=== PATIENT | female | born 1990 | race Caucasian/White ===

== ENCOUNTER 2017-05-02 14:34 | Outpatient (CLI) | payer BC | END 2017-05-02 16:19 | disposition home or self-care (01) | LOC: OBT 14:34 → L-D 14:34 → OBT 16:19 | DX: O99.513 Diseases of the respiratory system complicating pregnancy, third trimester (principal); J11.1 Influenza due to unidentified influenza virus with other respiratory manifestations; Z3A.38 38 weeks gestation of pregnancy | CPT/HCPCS: 76818 ==

== ENCOUNTER 2017-05-05 11:26 | Outpatient (CLI) | payer BC ==
[2017-05-05 12:00] LABS: ADD MAN DIFF? NO
[2017-05-05 12:10] LABS: BASOPHILS % 0.2 % (0.0-2.0); EOSINOPHILS # 0.1 10^3/ul (0.0-0.5); EOSINOPHILS % 0.7 % (0.0-7.0); HEMATOCRIT 34.7 % (37.0-47.0); LYMPHOCYTES # 1.3 10^3/ul (0.8-2.9); LYMPHOCYTES % 15.7 % (15.0-51.0); MEAN CORPUSCULAR HEMOGLOBIN 30.5 pg (29.0-33.0); MEAN CORPUSCULAR HGB CONC 34.6 g/dl (32.0-37.0); MEAN CORPUSCULAR VOLUME 88.3 fl (82.0-101.0); MEAN PLATELET VOLUME 9.9 fl (7.4-10.4); MONOCYTE # 0.7 10^3/ul (0.3-0.9); NEUTROPHIL # 6.3 10^3/ul (1.6-7.5); NEUTROPHILS % 74.3 % (39.0-77.0); PLATELET COUNT 269 10^3/UL (140-415); RED BLOOD COUNT 3.93 10^6/ul (4.20-5.40)
[2017-05-05 12:10] LABS: WHITE BLOOD COUNT 8.5 10^3/ul (4.8-10.8)
[2017-05-05 12:29] LABS: ALANINE AMINOTRANSFERASE 24 IU/L (13-69); ALBUMIN 3.5 g/dl (3.3-4.9); ALBUMIN/GLOBULIN RATIO 1.06; ALKALINE PHOSPHATASE 230 IU/L (42-121); ANION GAP 14 (8-16); ASPARTATE AMINO TRANSFERASE 20 IU/L (15-46); BILIRUBIN,INDIRECT 0.2 mg/dl (0-1.1); BILIRUBIN,TOTAL 0.2 mg/dl (0.2-1.3); BLOOD UREA NITROGEN 9 mg/dl (7-20); CALCIUM 9.2 mg/dl (8.4-10.2); CARBON DIOXIDE 19 mmol/L (21-31); CHLORIDE 109 mmol/L (97-110); GLUCOSE 103 mg/dl (70-220); POTASSIUM 4.1 mmol/L (3.5-5.1); SODIUM 138 mmol/L (135-144); TOTAL PROTEIN 6.8 g/dl (6.1-8.1); URIC ACID 5.6 mg/dl (3.1-7.9)
[2017-05-05 12:36] LABS: INR 0.85; PARTIAL THROMBOPLASTIN TIME 26.8 Sec (25.0-35.0); PROTIME 11.7 Sec (11.9-14.9); PT RATIO 0.9
[2017-05-05 12:53] LABS: ADD UMIC YES; UR ASCORBIC ACID 40 mg/dL (NEGATIVE); UR BACTERIA MODERATE /HPF (NONE SEEN); UR BILIRUBIN (Dip) NEGATIVE (NEGATIVE); UR BLOOD (Dip) NEGATIVE (NEGATIVE); UR CLARITY TURBID (CLEAR); UR COLOR AMBER (YELLOW); UR GLUCOSE (Dip) NEGATIVE (NEGATIVE); UR KETONES (Dip) NEGATIVE (NEGATIVE); UR LEUKOCYTE ESTERASE (Dip) 3+ Leu/ul (NEGATIVE); UR NITRITE (Dip) NEGATIVE (NEGATIVE); UR NONSQUAMOUS EPITHELIAL CELL 3 /HPF (NONE SEEN); UR RBC 10 /HPF (0-5); UR SPECIFIC GRAVITY (Dip) 1.025 (1.003-1.030); UR SQUAMOUS EPITHELIAL CELL MODERATE /HPF (FEW); UR TOTAL PROTEIN (Dip) 2+ mg/dl (NEGATIVE); UR UROBILINOGEN (Dip) NEGATIVE (NEGATIVE); UR WBC 38 /HPF (0-5)
== END 2017-05-05 14:00 | disposition home or self-care (01) ==
LOC: OBT 11:26 → L-D 11:26 → OBT 14:00
DX: O62.9 Abnormality of forces of labor, unspecified (principal); Z3A.38 38 weeks gestation of pregnancy
CPT/HCPCS: 76818; 80053; 81001; 84560; 85025; 85384; 85610; 85730

== ENCOUNTER 2017-05-12 10:17 | Inpatient (IN) | payer BC ==
[2017-05-12 11:57] LABS: ALANINE AMINOTRANSFERASE 25 IU/L (13-69); ALBUMIN 3.4 g/dl (3.3-4.9); ALKALINE PHOSPHATASE 236 IU/L (42-121); ANION GAP 14 (8-16); ASPARTATE AMINO TRANSFERASE 17 IU/L (15-46); BILIRUBIN,INDIRECT 0.1 mg/dl (0-1.1); BILIRUBIN,TOTAL 0.1 mg/dl (0.2-1.3); BLOOD UREA NITROGEN 11 mg/dl (7-20); CALCIUM 9.7 mg/dl (8.4-10.2); CARBON DIOXIDE 20 mmol/L (21-31); CHLORIDE 107 mmol/L (97-110); CREATININE 0.66 mg/dl (0.44-1.00); GLUCOSE 89 mg/dl (70-220); SODIUM 137 mmol/L (135-144); TOTAL PROTEIN 6.8 g/dl (6.1-8.1); URIC ACID 6.5 mg/dl (3.1-7.9)
[2017-05-12 12:04] LABS: ADD UMIC YES; UR ASCORBIC ACID 40 mg/dL (NEGATIVE); UR BACTERIA FEW /HPF (NONE SEEN); UR BILIRUBIN (Dip) NEGATIVE (NEGATIVE); UR BLOOD (Dip) NEGATIVE (NEGATIVE); UR CLARITY CLOUDY (CLEAR); UR COLOR YELLOW (YELLOW); UR GLUCOSE (Dip) NEGATIVE (NEGATIVE); UR KETONES (Dip) NEGATIVE (NEGATIVE); UR LEUKOCYTE ESTERASE (Dip) TRACE Leu/ul (NEGATIVE); UR NITRITE (Dip) NEGATIVE (NEGATIVE); UR NONSQUAMOUS EPITHELIAL CELL 2 /HPF (NONE SEEN); UR RBC 2 /HPF (0-5); UR SPECIFIC GRAVITY (Dip) 1.018 (1.003-1.030); UR SQUAMOUS EPITHELIAL CELL MODERATE /HPF (FEW); UR TOTAL PROTEIN (Dip) NEGATIVE (NEGATIVE); UR UROBILINOGEN (Dip) NEGATIVE (NEGATIVE); UR WBC 11 /HPF (0-5)
[2017-05-12] MEDS ORDERED: LIDOCAINE 1% (MPF) 30 ML INJ INJ (13:30)
[2017-05-12] MEDS ORDERED: METHYLERGONOVINE 0.2 MG INJ IM (13:30)
[2017-05-12] MEDS ORDERED: CARBOPROST 250 MCG INJ IM (13:30)
[2017-05-12] MEDS ORDERED: HYDROCODONE/APAP (5/325) TAB PO (13:30)
[2017-05-12] MEDS ORDERED: IBUPROFEN 600 MG TAB PO (13:30)
[2017-05-12] MEDS ORDERED: BUTORPHANOL 2 MG INJ IV (13:30)
[2017-05-12] MEDS ORDERED: MISOPROSTOL 200 MCG TAB PR (13:30)
[2017-05-12] MEDS ORDERED: OXYTOCIN 30 UNITS/LR 500 ML IV ×2 (13:30)
[2017-05-12] MEDS: LACTATED RINGER'S 1,000 ML IV ×2 (14:55→21:32)
[2017-05-12 15:33] LABS: ADD MAN DIFF? NO
[2017-05-12 15:36] LABS: BASOPHILS % 0.2 % (0.0-2.0); EOSINOPHILS # 0.1 10^3/ul (0.0-0.5); EOSINOPHILS % 0.5 % (0.0-7.0); HEMATOCRIT 37.2 % (37.0-47.0); HEMOGLOBIN 12.8 g/dl (12.0-16.0); LYMPHOCYTES # 1.4 10^3/ul (0.8-2.9); LYMPHOCYTES % 13.9 % (15.0-51.0); MEAN CORPUSCULAR HEMOGLOBIN 30.3 pg (29.0-33.0); MEAN CORPUSCULAR HGB CONC 34.4 g/dl (32.0-37.0); MEAN CORPUSCULAR VOLUME 88.2 fl (82.0-101.0); MEAN PLATELET VOLUME 9.9 fl (7.4-10.4); MONOCYTE # 0.9 10^3/ul (0.3-0.9); MONOCYTES % 8.3 % (0.0-11.0); NEUTROPHIL # 7.8 10^3/ul (1.6-7.5); NEUTROPHILS % 76.3 % (39.0-77.0); PLATELET COUNT 275 10^3/UL (140-415); RED BLOOD COUNT 4.22 10^6/ul (4.20-5.40)
[2017-05-12 15:36] LABS: WHITE BLOOD COUNT 10.2 10^3/ul (4.8-10.8)
[2017-05-12] MEDS: DINOPROSTONE 10 MG VAG SUPP VAG (15:41)
[2017-05-12 16:03] LABS: INR 0.91; PROTIME 12.3 Sec (11.9-14.9)
[2017-05-12 16:04] LABS: PARTIAL THROMBOPLASTIN TIME 28.3 Sec (25.0-35.0)
[2017-05-12 16:40] LABS: HEPATITIS B SURFACE ANTIGEN NEGATIVE (NEGATIVE)
[2017-05-12 17:36] LABS: AMPHETAMINE/METHAMPHETAMINE Negative (NEGATIVE); BARBITURATES Negative (NEGATIVE); BENZODIAZEPINES Negative (NEGATIVE); CANNABINOIDS Negative (NEGATIVE); COCAINE Negative (NEGATIVE); OPIATES Negative (NEGATIVE)
[2017-05-12] MEDS: ACYCLOVIR 400 MG TAB PO (21:17)
[2017-05-12] MEDS: ACETAMINOPHEN 325 MG TAB PO (21:28)
[2017-05-13] MEDS: BUTORPHANOL 2 MG INJ IV (04:16)
[2017-05-13] MEDS: LACTATED RINGER'S 1,000 ML IV ×2 (05:41→12:26)
[2017-05-13] MEDS ORDERED: FENTAnyl 2MCG/ML-ROPIV 0.2% 100 ML (06:21)
[2017-05-13] MEDS ORDERED: NALOXONE (0.4 MG/ML) INJ IV (07:00)
[2017-05-13] MEDS: DINOPROSTONE 10 MG VAG SUPP VAG ×2 (07:19→07:20)
[2017-05-13] MEDS: DEXTROSE 5%-LR 1,000 ML IV (07:22)
[2017-05-13] MEDS: ACYCLOVIR 400 MG TAB PO (08:45)
[2017-05-13] MEDS: OXYTOCIN 30 UNITS/LR 500 ML IV ×2 (10:28→18:16)
[2017-05-13] MEDS: FENTAnyl 2MCG/ML-ROPIV 0.2% 100 ML BAG EPI (13:10)
[2017-05-13 15:06] LABS: RAPID PLASMA REAGIN NONREACTIVE (NR)
[2017-05-13] MEDS ORDERED: SENNA/DOCUSATE NA (8.6MG/50MG) TAB PO (18:30)
[2017-05-13] MEDS ORDERED: OXYTOCIN 30 UNITS/LR 500 ML IV (18:30)
[2017-05-13] MEDS ORDERED: OXYCODONE/ASPIRIN (4.88/325) TAB PO ×2 (18:30)
[2017-05-13] MEDS ORDERED: METHYLERGONOVINE 0.2 MG INJ IM (18:30)
[2017-05-13] MEDS ORDERED: MISOPROSTOL 200 MCG TAB PR (18:30)
[2017-05-13] MEDS ORDERED: CARBOPROST 250 MCG INJ IM (18:30)
[2017-05-13] MEDS ORDERED: ONDANSETRON 4 MG INJ IV (18:30)
[2017-05-13 20:30] LABS: ADD MAN DIFF? NO
[2017-05-13 20:31] LABS: BASOPHILS % 0.2 % (0.0-2.0); EOSINOPHILS % 0.1 % (0.0-7.0); HEMATOCRIT 33.5 % (37.0-47.0); HEMOGLOBIN 11.6 g/dl (12.0-16.0); LYMPHOCYTES % 6.6 % (15.0-51.0); MEAN CORPUSCULAR HEMOGLOBIN 30.4 pg (29.0-33.0); MEAN CORPUSCULAR HGB CONC 34.6 g/dl (32.0-37.0); MEAN CORPUSCULAR VOLUME 87.7 fl (82.0-101.0); MEAN PLATELET VOLUME 10.1 fl (7.4-10.4); MONOCYTE # 0.7 10^3/ul (0.3-0.9); MONOCYTES % 5.1 % (0.0-11.0); NEUTROPHIL # 12.8 10^3/ul (1.6-7.5); NEUTROPHILS % 87.5 % (39.0-77.0); PLATELET COUNT 239 10^3/UL (140-415); RED BLOOD COUNT 3.82 10^6/ul (4.20-5.40); RED CELL DISTRIBUTION WIDTH 14.1 % (11.5-14.5)
[2017-05-13 20:31] LABS: WHITE BLOOD COUNT 14.6 10^3/ul (4.8-10.8)
[2017-05-13] MEDS: SENNA/DOCUSATE NA (8.6MG/50MG) TAB PO (22:20)
[2017-05-13] MEDS: LACTATED RINGER'S 1,000 ML IV* (23:08)
[2017-05-14] MEDS: DIBUCAINE 1% 30 GM OINT PR (00:46)
[2017-05-14] MEDS: WITCH HAZEL/GLYCERIN PAD PR (00:46)
[2017-05-14] MEDS: IBUPROFEN 600 MG TAB PO ×4 (00:46→17:45)
[2017-05-14] MEDS: BENZOCAINE 20% 56 ML SPRAY TOP (00:47)
[2017-05-14 09:41] LABS: ADD MAN DIFF? NO
[2017-05-14 09:47] LABS: BASOPHILS % 0.2 % (0.0-2.0); EOSINOPHILS # 0.1 10^3/ul (0.0-0.5); EOSINOPHILS % 0.8 % (0.0-7.0); HEMOGLOBIN 10.3 g/dl (12.0-16.0); LYMPHOCYTES # 1.3 10^3/ul (0.8-2.9); LYMPHOCYTES % 12.1 % (15.0-51.0); MEAN CORPUSCULAR HGB CONC 33.2 g/dl (32.0-37.0); MEAN CORPUSCULAR VOLUME 90.4 fl (82.0-101.0); MONOCYTE # 0.9 10^3/ul (0.3-0.9); MONOCYTES % 7.7 % (0.0-11.0); NEUTROPHIL # 8.8 10^3/ul (1.6-7.5); NEUTROPHILS % 78.8 % (39.0-77.0); PLATELET COUNT 218 10^3/UL (140-415); RED BLOOD COUNT 3.43 10^6/ul (4.20-5.40); RED CELL DISTRIBUTION WIDTH 14.5 % (11.5-14.5)
[2017-05-14 09:47] LABS: WHITE BLOOD COUNT 11.1 10^3/ul (4.8-10.8)
[2017-05-14] MEDS: SENNA/DOCUSATE NA (8.6MG/50MG) TAB PO ×2 (09:58→22:10)
[2017-05-14] MEDS: FERROUS SULFATE (EC) 325 MG TAB PO ×2 (11:57→22:11)
[2017-05-15] MEDS: IBUPROFEN 600 MG TAB PO ×2 (00:39→05:55)
[2017-05-15] MEDS: FERROUS SULFATE (EC) 325 MG TAB PO (09:51)
[2017-05-15] MEDS: SENNA/DOCUSATE NA (8.6MG/50MG) TAB PO (09:51)
== END 2017-05-15 12:05 | disposition home or self-care (01) | DRG 775 ==
LOC: OBT 10:17 → L-D 10:17 → OBT 12:44 → L-D 05-13 18:53 → PP1 05-13 22:22
PROC: 0HQ9XZZ Repair Perineum Skin, External Approach (ICD-10-PCS; principal; 2017-05-13)
PROC: 10E0XZZ Delivery of Products of Conception, External Approach (ICD-10-PCS; 2017-05-13)
DX: O13.4 Gestational [pregnancy-induced] hypertension without significant proteinuria, complicating childbirth (principal); O70.0 First degree perineal laceration during delivery; Z3A.40 40 weeks gestation of pregnancy; Z37.0 Single live birth
CPT/HCPCS: 62319; 76816; 76818; 80053; 80307; 81001; 84560; 85025; 85610; 85730; 86592; 86900; 86901; 87340

== ENCOUNTER 2018-06-23 09:06 | Outpatient (CLI) | payer OTHER, BC ==
[2018-06-23 10:44] LABS: ADD UMIC YES; UR AMORPHOUS CRYSTAL FEW /HPF (NONE SEEN); UR ASCORBIC ACID NEGATIVE (NEGATIVE); UR BACTERIA FEW /HPF (NONE SEEN); UR BILIRUBIN (Dip) NEGATIVE (NEGATIVE); UR BLOOD (Dip) NEGATIVE (NEGATIVE); UR CLARITY SLIGHTLY CLOUDY (CLEAR); UR COLOR YELLOW (YELLOW); UR GLUCOSE (Dip) NEGATIVE (NEGATIVE); UR KETONES (Dip) NEGATIVE (NEGATIVE); UR LEUKOCYTE ESTERASE (Dip) 2+ Leu/ul (NEGATIVE); UR NITRITE (Dip) NEGATIVE (NEGATIVE); UR RBC 1 /HPF (0-5); UR SPECIFIC GRAVITY (Dip) 1.014 (1.003-1.030); UR SQUAMOUS EPITHELIAL CELL FEW /HPF (FEW); UR TOTAL PROTEIN (Dip) NEGATIVE (NEGATIVE); UR UROBILINOGEN (Dip) NEGATIVE (NEGATIVE); UR WBC 5 /HPF (0-5)
== END 2018-06-23 12:45 | disposition home or self-care (01) ==
LOC: OBT 09:06 → L-D 09:10 → OBT 12:45
DX: O26.893 Other specified pregnancy related conditions, third trimester (principal); Z3A.28 28 weeks gestation of pregnancy; R10.2 Pelvic and perineal pain
CPT/HCPCS: 76817; 81001; 87086

== ENCOUNTER 2018-08-23 00:40 | Outpatient (CLI) | payer OTHER | END 2018-08-23 02:45 | disposition home or self-care (01) | LOC: OBT 00:40 → L-D 00:40 → OBT 02:45 | DX: O62.9 Abnormality of forces of labor, unspecified (principal); Z3A.36 36 weeks gestation of pregnancy | CPT/HCPCS: Z7500 ==

== ENCOUNTER 2018-09-03 21:35 | Inpatient (IN) | payer OTHER ==
[2018-09-03] MEDS ORDERED: MISOPROSTOL 200 MCG TAB PR (22:30)
[2018-09-03] MEDS ORDERED: OXYTOCIN 30 UNITS/LR 500 ML IV ×2 (22:30)
[2018-09-03] MEDS ORDERED: LIDOCAINE 1% (MPF) 30 ML INJ INJ (22:30)
[2018-09-03] MEDS ORDERED: CARBOPROST 250 MCG INJ IM (22:30)
[2018-09-03] MEDS ORDERED: METHYLERGONOVINE 0.2 MG INJ IM (22:30)
[2018-09-03] MEDS ORDERED: BUTORPHANOL 2 MG INJ IV ×2 (22:30)
[2018-09-03] MEDS: MINERAL OIL LIGHT 10 ML VIAL TOP (22:30)
[2018-09-03] MEDS ORDERED: IBUPROFEN 600 MG TAB PO (22:30)
[2018-09-03 23:15] LABS: ADD MAN DIFF? NO
[2018-09-03 23:17] LABS: WHITE BLOOD COUNT 10.4 10^3/ul (4.8-10.8)
[2018-09-03 23:17] LABS: BASOPHILS % 0.2 % (0.0-2.0); EOSINOPHILS # 0.1 10^3/ul (0.0-0.5); EOSINOPHILS % 0.6 % (0.0-7.0); HEMATOCRIT 36.8 % (37.0-47.0); HEMOGLOBIN 12.2 g/dl (12.0-16.0); LYMPHOCYTES # 1.7 10^3/ul (0.8-2.9); LYMPHOCYTES % 16.6 % (15.0-51.0); MEAN CORPUSCULAR HGB CONC 33.2 g/dl (32.0-37.0); MEAN CORPUSCULAR VOLUME 87.4 fl (82.0-101.0); MEAN PLATELET VOLUME 10.2 fl (7.4-10.4); MONOCYTE # 0.8 10^3/ul (0.3-0.9); MONOCYTES % 7.3 % (0.0-11.0); NEUTROPHIL # 7.8 10^3/ul (1.6-7.5); NEUTROPHILS % 74.5 % (39.0-77.0); PLATELET COUNT 317 10^3/UL (140-415); RED BLOOD COUNT 4.21 10^6/ul (4.20-5.40); RED CELL DISTRIBUTION WIDTH 13.8 % (11.5-14.5)
[2018-09-03] MEDS: LACTATED RINGER'S 1,000 ML IV ×2 (23:18→23:19)
[2018-09-03 23:24] LABS: ADD UMIC YES; UR ASCORBIC ACID NEGATIVE (NEGATIVE); UR BACTERIA FEW /HPF (NONE SEEN); UR BILIRUBIN (Dip) NEGATIVE (NEGATIVE); UR BLOOD (Dip) NEGATIVE (NEGATIVE); UR CLARITY CLOUDY (CLEAR); UR COLOR YELLOW (YELLOW); UR GLUCOSE (Dip) NEGATIVE (NEGATIVE); UR KETONES (Dip) NEGATIVE (NEGATIVE); UR LEUKOCYTE ESTERASE (Dip) 3+ Leu/ul (NEGATIVE); UR MUCUS FEW /HPF (NONE SEEN); UR NITRITE (Dip) NEGATIVE (NEGATIVE); UR RBC 5 /HPF (0-5); UR SPECIFIC GRAVITY (Dip) 1.019 (1.003-1.030); UR SQUAMOUS EPITHELIAL CELL MANY /HPF (FEW); UR TOTAL PROTEIN (Dip) NEGATIVE (NEGATIVE); UR UROBILINOGEN (Dip) NEGATIVE (NEGATIVE); UR WBC 23 /HPF (0-5)
[2018-09-03 23:37] LABS: INR 0.87; PROTIME 11.9 Sec (11.9-14.9); PT RATIO 0.9
[2018-09-03 23:38] LABS: PARTIAL THROMBOPLASTIN TIME 28.4 Sec (23.0-35.0)
[2018-09-03] MEDS ORDERED: FENTAnyl 2MCG/ML-ROPIV 0.2% 100 ML (23:49)
[2018-09-03 23:52] LABS: AMPHETAMINE/METHAMPHETAMINE Negative (NEGATIVE); BARBITURATES Negative (NEGATIVE); BENZODIAZEPINES Negative (NEGATIVE); CANNABINOIDS Negative (NEGATIVE); COCAINE Negative (NEGATIVE); OPIATES Negative (NEGATIVE)
[2018-09-04] MEDS ORDERED: FENTAnyl 2MCG/ML-ROPIV 0.2% 100 ML BAG EPI
[2018-09-04] MEDS ORDERED: NALOXONE (0.4 MG/ML) INJ IV
[2018-09-04] MEDS: ONDANSETRON 4 MG INJ IV (00:18)
[2018-09-04] MEDS: CEFTRIAXONE 1 GM/50 ML (PMX) 50 ML IVPB (00:56)
[2018-09-04] MEDS ORDERED: SOD CHLORIDE 0.9% 1,000 ML IV (01:00)
[2018-09-04] MEDS: LACTATED RINGER'S 1,000 ML IV (04:07)
[2018-09-04] MEDS: LACTATED RINGER'S 1,000 ML IV* (06:16)
[2018-09-04] MEDS ORDERED: DIBUCAINE 1% 30 GM OINT TOP (06:30)
[2018-09-04] MEDS ORDERED: BENZOCAINE 20% 56 ML SPRAY TOP (06:30)
[2018-09-04] MEDS ORDERED: METHYLERGONOVINE 0.2 MG INJ IM (06:30)
[2018-09-04] MEDS ORDERED: HYDROCODONE/APAP (5/325) TAB PO (06:30)
[2018-09-04] MEDS ORDERED: MISOPROSTOL 200 MCG TAB PR (06:30)
[2018-09-04] MEDS ORDERED: ACETAMINOPHEN 325 MG TAB PO ×2 (06:30)
[2018-09-04] MEDS ORDERED: OXYTOCIN 30 UNITS/LR 500 ML IV (06:30)
[2018-09-04] MEDS ORDERED: WITCH HAZEL/GLYCERIN PAD PR (06:30)
[2018-09-04] MEDS ORDERED: CARBOPROST 250 MCG INJ IM (06:30)
[2018-09-04] MEDS ORDERED: ACYCLOVIR 400 MG TAB PO (09:00)
[2018-09-04] MEDS: SENNA/DOCUSATE NA (8.6MG/50MG) TAB PO ×2 (09:30→21:00)
[2018-09-04] MEDS: OXYTOCIN 30 UNITS/LR 500 ML IV (09:32)
[2018-09-04] MEDS: IBUPROFEN 600 MG TAB PO ×2 (12:04→17:20)
[2018-09-04 19:16] LABS: RAPID PLASMA REAGIN NONREACTIVE (NR)
[2018-09-05 06:45] LABS: ADD MAN DIFF? NO
[2018-09-05 06:52] LABS: BASOPHILS % 0.5 % (0.0-2.0); EOSINOPHILS # 0.2 10^3/ul (0.0-0.5); EOSINOPHILS % 1.7 % (0.0-7.0); HEMATOCRIT 33.2 % (37.0-47.0); HEMOGLOBIN 10.8 g/dl (12.0-16.0); LYMPHOCYTES # 1.9 10^3/ul (0.8-2.9); LYMPHOCYTES % 22.5 % (15.0-51.0); MEAN CORPUSCULAR HGB CONC 32.5 g/dl (32.0-37.0); MEAN PLATELET VOLUME 9.9 fl (7.4-10.4); MONOCYTE # 0.7 10^3/ul (0.3-0.9); MONOCYTES % 8.4 % (0.0-11.0); NEUTROPHIL # 5.7 10^3/ul (1.6-7.5); NEUTROPHILS % 66.1 % (39.0-77.0); PLATELET COUNT 238 10^3/UL (140-415); RED BLOOD COUNT 3.73 10^6/ul (4.20-5.40); RED CELL DISTRIBUTION WIDTH 14.1 % (11.5-14.5)
[2018-09-05 06:52] LABS: WHITE BLOOD COUNT 8.6 10^3/ul (4.8-10.8)
[2018-09-05] MEDS: IBUPROFEN 600 MG TAB PO ×4 (06:59→18:00)
[2018-09-05] MEDS: SENNA/DOCUSATE NA (8.6MG/50MG) TAB PO ×2 (10:18→21:14)
[2018-09-06] MEDS: IBUPROFEN 600 MG TAB PO ×3 (06:00→12:00)
[2018-09-06] MEDS: DIPHTH/TET/ACEL PERTUSS (ADULT) 0.5 ML VIAL IM* (09:00)
[2018-09-06] MEDS: SENNA/DOCUSATE NA (8.6MG/50MG) TAB PO (09:44)
== END 2018-09-06 12:10 | disposition home or self-care (01) | DRG 807 ==
LOC: OBT 21:35 → PP1 09-04 06:40 → L-D 21:38 → OBT 22:00 → L-D 22:00
PROC: 10E0XZZ Delivery of Products of Conception, External Approach (ICD-10-PCS; principal; 2018-09-04)
DX: O80 Encounter for full-term uncomplicated delivery (principal); Z37.0 Single live birth; Z3A.38 38 weeks gestation of pregnancy
CPT/HCPCS: 62322; 80307; 81001; 85025; 85610; 85730; 86592; 86850; 86900; 86901; 87086; 99464